=== PATIENT | male | born 1940 | race Caucasian/White ===

== ENCOUNTER → 2016-04-19 | Outpatient (CLI) | payer MEDICARE, BC | LOC: RAD 12:33 | DX: Z01.810 Encounter for preprocedural cardiovascular examination (principal); I48.91 Unspecified atrial fibrillation ==

== ENCOUNTER → 2018-05-09 | Outpatient (CLI) | payer MEDICARE, BC | LOC: PT 12:49 | DX: Z48.812 Encounter for surgical aftercare following surgery on the circulatory system (principal); Z95.2 Presence of prosthetic heart valve ==

== ENCOUNTER 2018-08-17 13:00 | Outpatient (RCR) | payer MEDICARE, BC | END 2018-08-19 | disposition home or self-care (01) | LOC: CARDREHAB | DX: Z48.812 Encounter for surgical aftercare following surgery on the circulatory system (principal); Z98.890 Other specified postprocedural states ==

== ENCOUNTER 2018-09-03 13:26 | Observation (INO) | payer MEDICARE, BC ==
[~2018-09-03] VITALS: Ht 185.4 cm; Wt 99.3 kg
[2018-09-03 13:37] VITALS: BP 95/56
[2018-09-03] MEDS ORDERED: FLOMAX0.4 MG PO (13:49)
[2018-09-03] MEDS ORDERED: KRILL OIL 3501 EACH PO (13:49)
[2018-09-03] MEDS ORDERED: AMOXICILLIN 50500 MG (13:50)
[2018-09-03] MEDS ORDERED: IPRATROPIUM BROM3 M1 IH (13:50)
[2018-09-03] MEDS ORDERED: AMIODARONE200 MG PO (13:50)
[2018-09-03] MEDS ORDERED: FUROSEMIDE20 MG PO (13:51)
[2018-09-03] MEDS ORDERED: ASPIRIN E.C. 8181 MG (13:51)
[2018-09-03] MEDS ORDERED: PRINIVIL5 M1 PO (13:52)
[2018-09-03] MEDS ORDERED: CVS LUTEIN 401 EACH PO (13:52)
[2018-09-03] MEDS ORDERED: PREDNISONE10 MG PO (13:53)
[2018-09-03] MEDS ORDERED: ATORVASTATIN CA40 MG PO (13:53)
[2018-09-03] MEDS ORDERED: METOPROLOL SUCC25 M1 PO (13:53)
[2018-09-03] MEDS ORDERED: OXYCODONE PO (13:53)
[2018-09-03] MEDS ORDERED: ALDACTONE 25MG25 MG PO (13:54)
[2018-09-03] MEDS ORDERED: BALANCE B PO (13:54)
[2018-09-03] MEDS ORDERED: NATURAL VITAM1000 MG PO (13:55)
[2018-09-03] MEDS ORDERED: FINASTERIDE5 M1 PO (13:56)
[2018-09-03] MEDS ORDERED: WARFARIN SOD5 MG PO (13:56)
[2018-09-03 14:06] LABS: HEMATOCRIT 39.6 % (42.0-52.0); HEMOGLOBIN 12.5 g/dL (13.5-18.0); MEAN CELL VOLUME 87 fl (78-100); MEAN CORPUSCULAR HEMOGLOBIN 28 pg (27-31); MEAN CORPUSCULAR HGB CONC 32 g/dL (33-37); MEAN PLATELET VOLUME 11.3 fl (7.4-10.4); PLATELET COUNT 234 K/mm3 (130-400); RED BLOOD COUNT 4.53 M/mm3 (4.20-5.60); RED CELL DISTRIBUTION WIDTH 17.5 % (11.5-14.5)
[2018-09-03 14:21] LABS: LYMPHOCYTE 8 % (20-51); MONOCYTE 4 % (3-10); NEUTROPHILS 88 % (42-75); OVALOCYTES 2+
[2018-09-03 14:26] LABS: ALBUMIN 3.4 g/dL (3.4-4.8); ALT/SGPT 63 U/L (0-55); AST-SGOT 32 U/L (5-34); CALCIUM 8.4 mg/dL (8.3-10.5); CARBON DIOXIDE 23 mmol/L (23-31); GLUCOSE 213 mg/dL (75-110); POTASSIUM 4.1 mmol/L (3.5-5.1); SODIUM 135 mmol/L (136-145); TOTAL BILIRUBIN 3.1 mg/dL (0.2-1.2); TOTAL PROTEIN 5.4 g/dL (6.2-8.1); TROPONIN-I < 0.03 ng/mL (<0.030)
[2018-09-03 14:27] LABS: PROTHROMBIN TIME 50.1 SECONDS (9.0-12.0)
[2018-09-03 17:02] VITALS: BP 140/89
[2018-09-03 18:32] VITALS: BP 105/62
[2018-09-03 21:00] LABS: PH-URINE 5.5 (5.0 - 8.0); URINE APPEARANCE CLEAR; URINE BILIRUBIN NEGATIVE (NEGATIVE); URINE BLOOD NEGATIVE (NEGATIVE); URINE COLOR YELLOW; URINE GLUCOSE NEGATIVE (NEGATIVE); URINE KETONE NEGATIVE (NEGATIVE); URINE LEUKOCYTE ESTERASE NEGATIVE (NEGATIVE); URINE NITRATE NEGATIVE (NEGATIVE); URINE PROTEIN(semi-quant) NEGATIVE (NEGATIVE); URINE UROBILINOGEN NORMAL (NORMAL); URINE WBC 0-1 /hpf (0-3)
[2018-09-03 23:04] VITALS: BP 110/56
[2018-09-04] VITALS (8 sets, daily range): BP systolic 98–116; BP diastolic 61–77
[2018-09-04 06:51] LABS: EOS # 0.1 (0.04-0.40); EOS % 0.7 % (0.0-4.0); HEMATOCRIT 39.6 % (42.0-52.0); HEMOGLOBIN 12.7 g/dL (13.5-18.0); LYMPH# 2.9 (1.50-4.00); MEAN CELL VOLUME 88 fl (78-100); MEAN CORPUSCULAR HEMOGLOBIN 28 pg (27-31); MEAN CORPUSCULAR HGB CONC 32 g/dL (33-37); MEAN PLATELET VOLUME 11.1 fl (7.4-10.4); MONO # 1.2 (0.20-0.80); NEU # 7.9 (1.40-6.50); PLATELET COUNT 212 K/mm3 (130-400); RED BLOOD COUNT 4.52 M/mm3 (4.20-5.60); RED CELL DISTRIBUTION WIDTH 17.7 % (11.5-14.5); WHITE BLOOD COUNT 12.3 K/mm3 (4.8-10.8)
[2018-09-04 07:19] LABS: ALBUMIN 3.1 g/dL (3.4-4.8); CALCIUM 8.1 mg/dL (8.3-10.5); TOTAL BILIRUBIN 2.9 mg/dL (0.2-1.2); TOTAL PROTEIN 4.8 g/dL (6.2-8.1)
[2018-09-04 07:31] LABS: PROTHROMBIN TIME 45.7 SECONDS (9.0-12.0)
[2018-09-05 03:36] VITALS: BP 100/63
[2018-09-05 06:14] VITALS: BP 105/65
[2018-09-05 10:56] VITALS: BP 125/80
[2018-09-05 15:00] VITALS: BP 124/68
== END 2018-09-05 14:04 | disposition home or self-care (01) ==
LOC: ED 13:26 → MED/SURG 16:43
PROVIDERS: ADMIT Nurse Practitioner Primary Care
DX: R06.00 Dyspnea, unspecified (principal); R42 Dizziness and giddiness; I50.9 Heart failure, unspecified; D68.59 Other primary thrombophilia; I11.0 Hypertensive heart disease with heart failure; R41.89 Other symptoms and signs involving cognitive functions and awareness; E78.5 Hyperlipidemia, unspecified; Z79.82 Long term (current) use of aspirin; Z79.01 Long term (current) use of anticoagulants; Z79.52 Long term (current) use of systemic steroids
CPT/HCPCS: G0378; J1940; J7030

== ENCOUNTER → 2018-09-07 | Outpatient (CLI) | payer MEDICARE, BC ==
[2018-09-05 15:00] VITALS: BP 124/68
[~2018-09-07] MED LIST: ALDACTONE 25MG25 MG PO; AMIODARONE200 MG PO; AMOXICILLIN 50500 MG; ASPIRIN E.C. 8181 MG; ATORVASTATIN CA40 MG PO; BALANCE B PO; CVS LUTEIN 401 EACH PO; FINASTERIDE5 M1 PO; FLOMAX0.4 MG PO; FUROSEMIDE20 MG PO; IPRATROPIUM BROM3 M1 IH; KRILL OIL 3501 EACH PO; METOPROLOL SUCC25 M1 PO; NATURAL VITAM1000 MG PO; OXYCODONE PO; PREDNISONE10 MG PO; PRINIVIL5 M1 PO; WARFARIN SOD5 MG PO
[2018-09-07 09:29] LABS: PROTHROMBIN TIME 18.8 SECONDS (9.0-12.0)
== END ==
LOC: LAB 08:56
PROVIDERS: Family Medicine
DX: I48.91 Unspecified atrial fibrillation (principal)

== ENCOUNTER → 2018-09-14 | Outpatient (CLI) | payer MEDICARE, BC ==
[2018-09-05 15:00] VITALS: BP 124/68
[2018-09-14 15:11] LABS: POTASSIUM 4.4 mmol/L (3.5-5.1)
== END ==
LOC: LAB 12:37
PROVIDERS: Family Medicine
DX: I50.9 Heart failure, unspecified (principal); E87.70 Fluid overload, unspecified; Z79.01 Long term (current) use of anticoagulants; Z79.899 Other long term (current) drug therapy

== ENCOUNTER → 2018-09-17 | Outpatient (CLI) | payer MEDICARE, BC ==
[2018-09-05 15:00] VITALS: BP 124/68
== END ==
LOC: LAB 14:21
PROVIDERS: Family Medicine
DX: I48.91 Unspecified atrial fibrillation (principal)

== ENCOUNTER 2018-09-26 13:00 | Outpatient (RCR) | payer MEDICARE, BC | END 2018-10-01 14:00 | disposition home or self-care (01) | LOC: CARDREHAB 13:00 | DX: Z48.812 Encounter for surgical aftercare following surgery on the circulatory system (principal); Z86.79 Personal history of other diseases of the circulatory system; Z98.890 Other specified postprocedural states ==

== ENCOUNTER → 2018-10-01 | Outpatient (CLI) | payer MEDICARE, BC ==
[2018-09-05 15:00] VITALS: BP 124/68
== END ==
LOC: LAB 14:07
PROVIDERS: Family Medicine
DX: Z51.81 Encounter for therapeutic drug level monitoring (principal); Z79.01 Long term (current) use of anticoagulants